=== PATIENT | male | born 1960 | race Caucasian/White ===

== ENCOUNTER → 2016-08-10 | Outpatient (CLI) | payer BC ==
[~2016-08-10] MED LIST: REGADENOSON 0.4 MG/5 ML DISP.SYRIN. IV ONE
--- NOTE | 2016-08-10 10:54 | PCVCIMAG ---
EXAM: BILATERAL CAROTID DUPLEX INDICATION: Carotid Occlusive Disease. FINDINGS: Doppler Measurements (centimeters per second): RIGHT: Peak CCA-100, Peak ECA-129, Diastolic ICA-27, Peak ICA-146, ICA/CCA Ratio-1.5. LEFT: Peak CCA-102, Peak ECA-145, Diastolic ICA-112, Peak ICA-391, ICA/CCA Ratio-3.9. RIGHT CAROTID: The carotid bulb has moderate plaque. The proximal internal carotid artery shows 40-50% stenosis. The common carotid artery shows no significant stenosis. The external carotid artery shows no significant stenosis. LEFT CAROTID: The carotid bulb has severe plaque. The proximal internal carotid artery shows 90% stenosis. The common carotid artery shows no significant stenosis. The external carotid artery shows less than 50% stenosis. Antegrade flow in both vertebral arteries. IMPRESSION: 40-50% stenosis of the right internal carotid artery with moderate plaque. 90% stenosis of the left internal carotid artery with severe plaque. LOC:[id number]
--- NOTE | 2016-08-10 11:08 | PCVCIMAG ---
EXAM: BILATERAL RENAL ULTRASOUND AND BILATERAL RENAL DUPLEX INDICATION: Hypertension FINDINGS: Right kidney: Length measures 11.6 cm. No hydronephrosis or extensive renal scarring. Incidental note is made of a 1.1 x 1.5 x 1.6 cm benign cyst lower pole. Right renal duplex: Adequate technical quality. No sonographic evidence of renal artery stenosis. The aortic to renal artery ratio is 1.0. The renal vein is patent. Left kidney: Length measures 12.1 cm. No hydronephrosis or extensive renal scarring. Left renal duplex: Adequate technical quality. No sonographic evidence of renal artery stenosis. The aortic to renal artery ratio is 1.4. The renal vein is patent. Bladder: No obvious abnormalities. IMPRESSION: No significant renal artery stenosis. No hydronephrosis bilaterally. Previous right renal artery stent maintaining satisfactory patency. LOC:[id number]
--- NOTE | 2016-08-10 14:53 | PCVCIMAG ---
APPROVED REPORT Exam: Nuclear Stress Test Indication: Chest Pain, Dyspnea, CAD Patient Location: Out Patient Stress Nurse: Aileen Bueno RN, Shellie Williamson RN PR Tech:Dre Timo NMTCB Ht: 5 ft 10 in Wt: 228 lbs BSA: 2.21 m2 HR: 75 bpm BP: 148/84 mmHg BMI: 32.7 Rhythm: Non Specific T Wave Abnormality Medical History Medical History: CAD s/p CABG 2004 Medications: ASA, Lipitor, Zetia, Diovan, Bystolic (held 24 hours) Allergies: No known drug allergies Cardiac Risk Factors: Age, Hyperlipidemia, HTN, PVD, CVD, CAD Pretest Chest Pain Characteristics: No chest pain Exercise History: Sedentary Physical Disabilities: Hips, Back NM EXAM: Myocardial Perfusion REST/STRESS Imaging Protocol: Rest Tc-99m/Stress Tc-99m 1 day Resting Data Rest SPECT myocardial perfusion imaging was performed in supine position 45 minutes following the intravenous injection of 11.6 mCi of Tc-99m Sestamibi. Time of rest injection: 0930 Date: 08/10/2016 Pharmacologic Stress Pharmacologic stress test was performed by injecting Regadenoson 0.4 mg IV push followed by the intravenous injection of 36 mCi of Tc-99m Sestamibi. Time of stress injection: 1040 Date: 08/10/2016 The images were gated to evaluate regional wall motion and calculate left ventricular ejection fraction. Study Quality Study: Good Study Data Post stress, the left ventricular ejection was 72%.. SSS: 4 SRS: 2 SDS: 1 TID = 0.94. Perfusion Medium sized area of moderate reversible ischemia involving the mid/basal inferior left ventricle consistent with a right coronary artery distribution. Wall Motion Normal left ventricular size and function with no regional wall motion abnormalities. Nuclear Conclusion Medium sized area of moderate reversible ischemia involving the mid/basal inferior left ventricle consistent with a right coronary artery distribution has developed since January 2015. Normal left ventricular size and function with no regional wall motion abnormalities. Post stress, the left ventricular ejection was 72%.. Interpreted by: Martin Carmen MD Electronically Approved: 08/10/2016 12:11:03 Stress Test Details Stress Test: Pharmacologic stress was paired with low level exercise. Reason for pharmacologic stress test: physical limitation. HR Resting HR: 72 bpmMax Heart Rate (APMHR): 163 bpm Max HR Achieved: 102 bpmTarget HR (85% APMHR): 138 bpm % of APMHR: 62 Recovery HR: 82 bpm BP Resting BP: 148/84 mmHg Max BP: 130/62 mmHg Recovery BP: 143/69 mmHg ECG Resting ECG: Sinus Rhythm, nonspecific ST-T abnormalities Stress ECG: Sinus Rhythm, nonspecific ST-T abnormalities Maximum ST Deviation: 0 mm Arrhythmia: None Recovery ECG: Sinus Rhythm, nonspecific ST-T abnormalities Recovery Arrhythmia: None Clinical Reason for Termination: Completed protocol Stress Symptoms: Dyspnea Exercise duration: min 55 sec Exercise capacity: 1.6 METs Overall Exercise Capacity for Age: Poor Scale: Sedentary Symptoms resolved during recovery. No complications. Stress ECG Conclusion ECG: Non-ischemic Clinical: Non-ischemic <Conclusion> ECG: Non-ischemic Clinical: Non-ischemic
== END | disposition home or self-care (01) ==
LOC: PCVCIMAG 07:48
PROVIDERS: ATTEND Internal Medicine Cardiovascular Disease
DX: I25.10 Atherosclerotic heart disease of native coronary artery without angina pectoris (principal); I77.89 Other specified disorders of arteries and arterioles; I25.118 Atherosclerotic heart disease of native coronary artery with other forms of angina pectoris; I73.9 Peripheral vascular disease, unspecified; I10 Essential (primary) hypertension; E78.00 Pure hypercholesterolemia, unspecified; M54.17 Radiculopathy, lumbosacral region; I65.23 Occlusion and stenosis of bilateral carotid arteries; Z95.1 Presence of aortocoronary bypass graft; Z79.899 Other long term (current) drug therapy; Z87.891 Personal history of nicotine dependence
CPT/HCPCS: 76770; 78452; 93017; 93880; 93975; A9500; G0463; J2785

== ENCOUNTER → 2016-08-16 | Outpatient (CLI) | payer BC ==
[~2016-08-16] MED LIST changes: +CLOPIDOGREL BISULFATE 75 MG TABLET ONE; +DIAZEPAM 10 MG TABLET. ONE; +HEPARIN SODIUM 5,000 UNIT/ML VIAL for PCVC. ONE; +HEPARIN for ARTERIAL LINE 1,500 ML ONE; +HYDROcodone/APAP 5/325MG 1 TAB TABLET ONE; +IOHEXOL 300 MG/ML 100ML VIAL. ONE; +IOHEXOL 350 MG/ML 100 ML VIAL. ONE; +IV NORMAL SALINE 1000ML BAG 1,000 ML ONE; +LIDOCAINE 1% Multi-Dose 20 ML VIAL. ONE; +MIDAZOLAM HCL/PF 2 MG/2 ML VIAL. ONE; -REGADENOSON 0.4 MG/5 ML DISP.SYRIN. IV ONE; +fentaNYL PF VIAL 100 MCG/2 ML VIAL ONE
--- NOTE | 2016-08-16 12:50 | PCVCINTER ---
EXAM: 1. CERVICOEPHALIC ARCH AORTOGRAM 2. BILATERAL CAROTID ANGIOGRAPHY 3. LEFT VERTEBROBASILAR ANGIOGRAPHY 4. BILATERAL RENAL ANGIOGRAPHY 5. BILATERAL ILIOFEMORAL ANGIOGRAPHY 6. RIGHT COMMON ILIAC ARTERY STENT PLACEMENT. INDICATION: Carotid occlusive disease. Left subclavian steal. Hypertension. Renal atherosclerosis. Peripheral arterial disease. Right leg claudication. PROCEDURE: Procedure and risks of the procedures listed above were discussed with the patient and consent obtained. Risks including but not limited to bleeding, infection, stroke, vascular injury, neurologic injury, embolization, allergic reactions, and contrast-induced nephropathy requiring dialysis were discussed as appropriate and consent obtained. Patient was placed on the angiography table. IV conscious sedation was utilized with appropriate monitoring for 60 minutes. The right groin was prepped and draped in the normal sterile fashion. Ultrasound was used to interrogate the right groin and demonstrate the right common femoral artery. An ultrasound image was saved. Under ultrasound guidance a 21 gauge needle was used to gain access into the right common femoral artery and a 6F vascular sheath was placed. Catheter was placed into the ascending aorta and cervicocephalic aortic arch angiogram performed. Catheter was placed into the suprarenal abdominal aorta and abdominal aortic angiogram performed. Catheter was placed at the aortic bifurcation and bilateral iliofemoral angiography performed. Catheter was placed into the right common carotid artery and right common carotid angiogram performed. Catheter was placed into the left common carotid artery and left common carotid angiogram performed. Catheter was placed into the left subclavian artery and left vertebro-basilar angiogram performed. Catheter was placed into the right renal artery and right renal angiogram performed. Catheter was placed into the left renal artery and left renal angiogram performed. Patient was given 3000 units of heparin. Stent placement across the area of stenosis in the right common iliac artery was performed with a 12 x 40 Smart control stent with subsequent dilatation up to 9.[address] Gonzalez joined the procedure and he then performed coronary angiography. Please see his separate dictation for full details. Catheters and wires were removed and hemostasis obtained using the Exoseal device. No immediate complications. FINDINGS: Cervicocephalic arch aortogram: Innominate artery is patent. Moderate plaque origin left common carotid artery does not cause significant stenosis. Moderate plaque origin left subclavian artery does not cause significant stenosis. Cranial directed flow in both vertebral arteries with the left vertebral artery being dominant. 60% stenosis at the origin of the right common iliac artery. Mild stenosis proximal right subclavian artery. Right common carotid angiogram: This injection fills both anterior cerebral and the right middle cerebral distribution which are unremarkable. Cavernous carotid artery is patent. Eccentric plaque at the origin of the internal carotid artery results in 50% stenosis. The common and external carotid arteries are patent. Left common carotid angiogram: This injection fills the left anterior and left middle cerebral distributions which are within normal limits. Moderate plaque proximal internal carotid artery results in 80% stenosis at its origin. Common and external carotid arteries are patent. Left vertebrobasilar angiogram: Left vertebral artery show satisfactory patency as does the basilar artery and both posterior cerebral arteries. Right renal angiogram: Previous stent proximal vessel is widely patent. No branch vessel stenosis. Left renal angiogram: Previous stent proximal vessel is widely patent. No branch vessel stenosis. Aortogram: There is one right and one left renal artery. Moderate plaque infrarenal abdominal aorta without significant stenosis. Bilateral iliofemoral angiogram: Ulcerated plaque mid right common iliac artery causes 70% stenosis. Mild plaque left common iliac artery does not cause significant stenosis. Both external iliac arteries show good patency. Both internal iliac arteries are patent moderate plaque. Right and left common femoral arteries show moderate plaque without high-grade stenosis. Right and left profunda femoral arteries are patent. Upper right superficial femoral artery shows good patency. Upper left superficial femoral artery shows moderate plaque with at least 50% stenosis. Right common iliac artery: Following procedure as above right common iliac artery is widely patent. IMPRESSION: 80% stenosis proximal left internal carotid artery. 50% stenosis proximal right internal carotid artery not felt to be flow-limiting. Previous bilateral renal artery stents widely patent. Ulcerated stenosis right common iliac artery treated with stent placement with vessel being widely patent. LOC:[id number]
== END | disposition home or self-care (01) ==
LOC: PCVCINTER 09:30
PROVIDERS: ATTEND Nuclear Medicine Nuclear Cardiology
DX: I70.211 Atherosclerosis of native arteries of extremities with intermittent claudication, right leg (principal); I25.10 Atherosclerotic heart disease of native coronary artery without angina pectoris; I70.1 Atherosclerosis of renal artery; I10 Essential (primary) hypertension
CPT/HCPCS: 36223; 36225; 36252; 37221; 75630; 76937; 93458; 99152; 99153; C1725; C1751; C1760; C1769; C1876; C1894; J0690; J1644; J2250; J3010; J7030; Q9967; 36221

== ENCOUNTER → 2017-11-12 | Outpatient (CLI) | payer OTHER ==
--- NOTE | 2017-11-12 17:59 | PCVCIMAG ---
EXAM: BILATERAL CAROTID DUPLEX INDICATION: Carotid Occlusive Disease.. Prior left carotid endarterectomy. FINDINGS: Doppler Measurements (centimeters per second): RIGHT: Peak CCA-98, Peak ECA-121, Diastolic ICA-35, Peak ICA-153, ICA/CCA Ratio-1.6. LEFT: Peak CCA-121, Peak ECA-111, Diastolic ICA-26, Peak ICA-115, ICA/CCA Ratio-0.9. RIGHT CAROTID: The carotid bulb has moderate plaque. The proximal internal carotid artery shows 40-50% stenosis. The common carotid artery shows no significant stenosis. The external carotid artery shows no significant stenosis. LEFT CAROTID: The carotid bulb has no significant plaque. The proximal internal carotid artery shows no significant stenosis. The common carotid artery shows no significant stenosis. The external carotid artery shows no significant stenosis. Antegrade flow in both vertebral arteries. IMPRESSION: 40-50% stenosis of the right internal carotid artery with moderate plaque. No significant stenosis of the left internal carotid artery with no significant plaque. Since July 2016 left carotid endarterectomy has been performed. LOC:[id number]
== END | disposition home or self-care (01) ==
LOC: PCVCIMAG 16:30
PROVIDERS: ATTEND Internal Medicine Cardiovascular Disease
DX: I65.21 Occlusion and stenosis of right carotid artery (principal)
CPT/HCPCS: 93880

== ENCOUNTER → 2017-11-30 | Outpatient (CLI) | payer OTHER ==
[~2017-11-30] MED LIST changes: -CLOPIDOGREL BISULFATE 75 MG TABLET ONE; -DIAZEPAM 10 MG TABLET. ONE; -HEPARIN SODIUM 5,000 UNIT/ML VIAL for PCVC. ONE; -HEPARIN for ARTERIAL LINE 1,500 ML ONE; -HYDROcodone/APAP 5/325MG 1 TAB TABLET ONE; -IOHEXOL 300 MG/ML 100ML VIAL. ONE; -IOHEXOL 350 MG/ML 100 ML VIAL. ONE; -IV NORMAL SALINE 1000ML BAG 1,000 ML ONE; -LIDOCAINE 1% Multi-Dose 20 ML VIAL. ONE; -MIDAZOLAM HCL/PF 2 MG/2 ML VIAL. ONE; +REGADENOSON 0.4 MG/5 ML DISP.SYRIN. IV ONE; -fentaNYL PF VIAL 100 MCG/2 ML VIAL ONE
--- NOTE | 2017-12-03 17:05 | PCVCIMAG ---
APPROVED REPORT Imaging Protocol: Rest Tc-99m/Stress Tc-99m 1 day Study performed: 11/30/2017 08:29:21 Indication: CAD Patient Location: CHEST PAIN, PRE-OP EVAL, DYSPNEA, A-FLUTTER Stress Nurse: Mariam Walden RN AL Tech:MIC BonillaMT Ht: 5 ft 10 in Wt: 245 lbs BSA: 2.28 m2 HR: 60 bpm BP: 183/88 mmHg BMI: 35.1 Rhythm: NSR Medical History Medical History: HTN, Hyperlipidemia, PVD, Former Smoker, CAD, Age Medications: Aspirin, Amlodipine, Atorvastatin, Zetia, Bistolic, Diovan Allergies: No known drug allergies Previous Cardiac Procedures: CABG, PCI Pretest Chest Pain Characteristics: No chest pain Resting Data Rest SPECT myocardial perfusion imaging was performed in supine position 45 minutes following the intravenous injection of 10.7 mCi of Tc-99m Sestamibi. Time of rest injection: 809 Date: 11/30/2017 Administration Route: IV Administration Site: Left Hand Pharmacologic Stress Pharmacologic stress test was performed by injecting Regadenoson 0.4 mg IV push over 10-15 seconds immediately followed by the intravenous injection of 34.8 mCi of Tc-99m Sestamibi. Time of stress injection: 909 Date: 11/30/2017 Administration Route: IV Administration Site: Left Hand Gated Stress SPECT was performed 45 minutes after stress injection. The images were gated to evaluate regional wall motion and calculate left ventricular ejection fraction. Comments Prior Nuclear Stress Test 07/2016: Moderate reversible ischemia, RCA Stress Test Details Stress Test: Pharmacologic stress was paired with low level exercise. Reason for pharmacologic stress test: physical limitation, LLE impared (shanika in place). HRMax Heart Rate (APMHR): 161 bpm Resting HR: 60 bpmTarget HR (85% APMHR): 136 bpm Max HR Achieved: 97 bpm % of APMHR: 60 Recovery HR: 69 bpm BP Resting BP: 183/88 mmHg Recovery BP: 153/71 mmHg ECG Resting ECG: Sinus Rhythm Stress ECG: Sinus Rhythm, Sinus Rhythm, NSSTT changes Recovery ECG: Sinus Rhythm Clinical Reason for Termination: Completed protocol Stress Symptoms: Dyspnea, Headache Exercise duration: 4 min 00 sec Exercise capacity: 1.6 METs Symptoms resolved with caffeine. Stress ECG Conclusion ECG: Non-ischemic Study Quality Study: Good Study Data Post stress, the left ventricular ejection was 68%.. SSS: 4 SRS: 2 SDS: 2 TID = 1.14. Perfusion Medium sized area of mild reversible ischemia involving the mid anterior left ventricle consistent with a left anterior descending distribution has developed since July 2016 study. Medium sized area of mild reversible ischemia involving the basal inferior left ventricle consistent with a right coronary artery distribution is less prominent than July 2016 study. Nuclear Conclusion Medium sized area of mild reversible ischemia involving the mid anterior left ventricle consistent with a left anterior descending distribution has developed since July 2016 study. Medium sized area of mild reversible ischemia involving the basal inferior left ventricle consistent with a right coronary artery distribution is less prominent than July 2016 study. Post stress, the left ventricular ejection was 68%. Interpreted by: Martin Carmen MD Electronically Approved: 12/01/2017 14:04:22 <Conclusion> ECG: Non-ischemic
== END | disposition home or self-care (01) ==
LOC: PCVCIMAG 11:14
PROVIDERS: ATTEND Internal Medicine Cardiovascular Disease
DX: I25.10 Atherosclerotic heart disease of native coronary artery without angina pectoris (principal); I48.92 Unspecified atrial flutter; R06.09 Other forms of dyspnea; R07.9 Chest pain, unspecified
CPT/HCPCS: 78452; 93017; A9500; J2785